=== PATIENT | male | born 1980 | race Caucasian/White ===

== ENCOUNTER 2018-06-20 16:58 | Inpatient (IN) | payer MEDICAID, SELFPAY ==
--- NOTE | 2018-06-20 17:04 | PCM.HP.STD ---
Problem List (1) Heroin withdrawal Status: Acute (2) Hepatitis C Status: Chronic (3) Hepatitis B Status: Chronic (4) Nicotine abuse Status: Chronic (5) Anxiety Status: Chronic History of Present Illness Date of Admission: 06/20/18 Chief Complaint: heroin withdrawal The patient is a 37 year old M with pmhx of Hep B and C (never treated), anxiety, MRSA infections, heroin use since age 19, who presented to the hospital medical stabilization program with c/o heroin withdrawal. He uses IV heroin, about 1 gram per day. Last use was 9pm last night. Current withdrawal symptoms include anxiety, restlessness, aches, nausea. He injects into his hands and forearms. No drainage or open wounds. He also smokes 1/2 ppd and would like a patch. He does not drink. He denies other drug use. He was recently in a detox facility and was taking only trazodone for sleep which is not helping. [] Past Medical History Past Medical History (Chronic Problems): Chronic Problems Hepatitis C (Chronic) Hepatitis B (Chronic) Nicotine abuse (Chronic) Anxiety (Chronic) Surgical History: no surgical history Psychiatric History: Anxiety, Depression Lives: With Family Smoking Status: Current every day smoker Tobacco Use: Cigarettes Alcohol: None Drugs: Heroin - *Family History Maternal History Items: Cancer Paternal History Items: No pertinent history Review of Systems Constitutional: Denies: Chills, Fever, Weight Change HEENT: Denies: Head Aches, Sinus Congestion, Sinus Drainage Cardiovascular: Denies: Chest Pain, Palpitations Respiratory: Denies: Cough, Shortness of breath at rest, Sputum production Gastrointestinal: Reports: Nausea. Denies: Abdominal Pain, Vomiting Genitourinary: Denies: Dysuria Musculoskeletal: Reports: - - aches. Denies: Joint Pain, Joint Tenderness Skin: Reports: - - injection sites on forearms and hands not acutely infected. Denies: Rash, Wounds Neurological: Denies: Numbness, Tingling, Focal weakness Psychiatric: Reports: Anxiety. Denies: Depression, Homicidal Ideations, Suicidal Ideations Hematologic/ Lymphatic: Denies: Easy Bruising, Easy Bleeding VTE Information - Inpt Only VTE Present on Admission: No VTE Mechan Device Prophylaxis: None VTE Pharm Prophylaxis ordered?: No Reason prophylaxis not ordered:: Procedure Not Indicated Patient Problems: Active and Suspected Problems Heroin withdrawal (Acute) - Physical Exam General: Alert, Oriented x3, Cooperative HEENT: Atraumatic, PERRLA, EOMI, Normocephalic Neck: Supple, No JVD, Negative Carotid Bruits Lungs: Clear to auscultation, Normal air movement Cardiovascular: Regular rate, No murmurs Abdomen: Bowel Sounds Present, Soft, Non Tender Extremities: No edema, Capillary Refill Less than 3 Seconds Skin: No rashes, No breakdown Musculoskeletal: No Tenderness to Palpation of Joints or Extremities Neurological: Cranial nerves II-XII grossly intact Psych/Mental Status: Normal Affect, Appropriate Assessment/Plan All Active Problems Heroin withdrawal (Acute) 1. Acute heroin withdrawal - initiate medical stabilization protocol with suboxone/librium. 1g/day IV user forearms/hands, using since age 19, last use last evening 9pm, symptoms as above. 2. Nicotine abuse - patch 3. HepB/C history - untreated in past. DVT ppx: early ambulation Medical stabilization day 1 of 4 This patient was seen by Sharath Bull PA-C under the supervision of Dr. Hicks.
[2018-06-20 17:09] VITALS: BMI 25.1
[2018-06-20 17:32] VITALS: BP 133/81; PULSE 83; RESP 16; TEMP 36.7
[2018-06-20] MEDS: Methocarbamol 750 MG Tablet PO (17:51)
[2018-06-20] MEDS: Dicyclomine 10 MG Capsule 20 MG PO (17:51)
[2018-06-20] MEDS: cloNIDine HCl 0.1 MG Tablet PO (17:51)
[2018-06-20 18:00] VITALS: BP 133/81; PULSE 83; RESP 16; TEMP 36.7
[2018-06-20] MEDS: chlordiazePOXIDE 25 MG Capsule PO (21:14)
[2018-06-20 21:17] VITALS: BP 104/67; PULSE 71; RESP 14; TEMP 36.3
[2018-06-21 01:41] VITALS: BP 119/82; PULSE 56; RESP 16; TEMP 36.6
[2018-06-21] MEDS: Buprenorphine HCl 2 MG TAB.SUBL SL ×3 (01:43→17:45)
[2018-06-21] MEDS: Methocarbamol 750 MG Tablet PO ×3 (01:47→17:46)
[2018-06-21] MEDS: Ibuprofen 600 MG Tablet PO ×2 (01:47→16:25)
[2018-06-21 06:00] VITALS: BP 95/56; PULSE 55; RESP 16; TEMP 36.6
--- NOTE | 2018-06-21 06:36 | PCM.PN.HOSP ---
Patient Problems: Active and Suspected Problems Heroin withdrawal (Acute) Subjective: Patient with ongoing mild tremors, sweating, abdominal cramping and body aches although mildly improved from initial presentation. Additional regimen added and requested from nursing staff following evaluation patient. Discussed patient diagnosis of hepatitis B and C and encourage patient to consider sobriety, clean status times at least 6 months to initiate on therapy. Patient denies fevers, nausea, emesis, chest pain or dyspnea. Objective: Physical Examination: General: awake, alert, oriented x 3 and cooperative, laying in the bed, uncomfortable appearing, sweating. Skin: normal color, turgor, no icterus, cyanosis several tattoos present. HEENT: AT/NC, EOMI, PERRLA, mildly dry MM. Lungs: CTA bilaterally, moderate effort, mild decrease BL bases, no rales, ronchi or wheezing. Heart: Regular rate and rhythm; no gallop, rub audible. Abdomen: soft, mild generalized discomfort with palpation, ND, normal BS, mild HM. Extremities: no cyanosis, clubbing, or edema. Neurological: patient awake, alert, oriented x 3; cognitive function intact; pupils equally reactive to light and accomodation; cranial nerves II-XII grossly normal, moving all 4 extremities, no focal deficits, strength moderately globally decreased secondary to acute presentation. Psychiatric: affect appears fatigued, no acute evidence of depressive or anxiety feelings. Vitals/I&O's: Vital Signs Temp Pulse Resp BP 97.8 F 55 L 16 95/56 L 06/21/18 06:00 06/21/18 06:00 06/21/18 06:00 06/21/18 06:00 Weight: 175 lb 2 oz Body Mass Index (BMI) 25.1 Intake and Output for Last 24 Hours 06/19/18 06/20/18 06/21/18 23:59 23:59 23:59 Intake Total 100 / 100 Balance 100 / 100 Current Medications Acetaminophen (Tylenol) 500 mg PO Q4H PRN PRN PRN Reason: Temp > 100.4 F Buprenorphine HCl (Buprenorphine Hcl) 4 mg SL Q8H BRUNILDA; Taper Stop: 06/23/18 21:59 Last Admin: 06/21/18 01:43 Dose: 4 mg Chlordiazepoxide (Librium) 25 mg PO Q6H PRN PRN PRN Reason: Moderate-Severe Anxiety Last Admin: 06/20/18 21:14 Dose: 25 mg Clonidine (Catapres) 0.1 mg PO Q2H PRN PRN PRN Reason: Hot/Cold Sweats or Anxiety Last Admin: 06/20/18 17:51 Dose: 0.1 mg Dicyclomine HCl (Bentyl) 20 mg PO Q6H PRN PRN PRN Reason: Abdomnial Discomfort Last Admin: 06/20/18 17:51 Dose: 20 mg Ibuprofen (Motrin) 600 mg PO Q8H PRN PRN PRN Reason: Mild-Moderate Pain (1-5/10) Last Admin: 06/21/18 01:47 Dose: 600 mg Methocarbamol (Methocarbamol) 750 mg PO Q6H PRN PRN PRN Reason: Muscle Aches Last Admin: 06/21/18 01:47 Dose: 750 mg Nicotine (Nicoderm Cq (Pbkc)) 21 mg TRANSDERM. DAILY BRUNILDA Last Admin: 06/20/18 21:14 Dose: 21 mg Medical Necessity - Tobacco Use Smoking Status: Current every day smoker Tobacco Use: Cigarettes Assessment/Plan All Active Problems Heroin withdrawal (Acute) The patient is a 37 y/o M w/ PMHx: Known Hepatitis B and C without any treatment history, Hx MRSA, Tobacco use, Heroine Usage IV (1 gm daily) since age 19 who presents to the the [facility] at [facility] on 06/21/18 w/ noted opiate withdrawal onset starting 06/20/18 following last dose 06/19/18 ~ 9 am with abdominal pain/cramping, generalized body aches and pains, rhinorrhea, piloerection, fatigue, restless leg, sweating, yawning. (1) Acute Opiate Withdrawal: Admitted to [place], obtained routine labs including CBC, CMP, urine for drug screen, continue on [facility] service protocol with tapering course of Subutex, as needed Seroquel, Librium, Sinemet, Catapres, Bentyl, Vistaril, IV fluids, IV antiemetics, Tylenol as needed for pain. Once patient clinically improved and completion of taper nearing will plan [facility] assistance for transition to next level of rehabilitation care. (2) Polysubstance Abuse, IVDA Hx, History of Hepatitis B and C, Chronic: Patient currently not candidate for hepatitis C treatment currently as needs to be clean, sober x 6 months, documented attendance NA or AA meetings, counseling and ongoing negative drug screens. HIV panel negative. Encouraged PCP establishment and follow-up. Will given referral to ID given co-infection with B and C. (3) Elevated LFTs w/ Hx Hepatitis C, B, Untreated: Routine labs obtained as noted, resulted with T bili 0.7, AST/ALT 100/152, Alk phos 104, unclear baseline, no prior labs [facility]. As noted, #2, intention to refer to ID upon discharge. (4) Tobacco Abuse: Encouraged cessation, inpatient consultation per RT, NR if desired. (5) DVT Prophylaxis: Low risk, ambulation. Code Visit Inpatient E&M: 29968 Subs Hosp L2
[2018-06-21 07:11] LABS: Absolute Lymphocyte Count 2.56 X10^3/ul (0.83-4.51); Basophil# 0.03 X10^3/uL; Basophil% 0.4 % (0-1); Eosinophil# 0.16 X10^3/uL; Eosinophils% 2.1 % (0-5); Hematocrit 43.1 % (40-54); Hemoglobin 14.8 g/dl (13.0-16.5); Lymphocyte # 2.56 X10^3/ul (4.0); Mean Corp Hgb Conc 34.3 g/gl (32-36); Mean Corpuscular Volume 90.2 fL (80-94); Mean Platelet Vol. 9.4 fl (6.2-12.0); Monocyte# 0.78 X10^3/uL; Monocyte% 10.4 % (0-10); Neutrophil # 3.98 X10^3/uL (2.7-7.7); Platelet Count 233 K/mm3 (150-450); RBC Distribution Width CV 13.6 % (11.6-14.6); Red Blood Count 4.78 M/mm3 (4.6-6.2); White Blood Count 7.5 K/mm3 (4.4-11.0)
[2018-06-21 07:13] LABS: POSITIVE COUNT NO; POSITIVE DIFFERENTIAL NO; POSITIVE MORPHOLOGY NO
[2018-06-21 07:26] LABS: ALB/GLOB Ratio 0.7 RATIO (0.9-2.4); AST(SGOT) 100 U/L (15-37); Alanine Aminotransfer ALT/SGPT 152 U/L (16-61); Albumin, Serum 3.3 g/dL (3.2-5.0); Alkaline Phosphatase 104 U/L (45-117); Anion Gap 7 (5-15); BUN 9 mg/dL (7-18); BUN/Creat Ratio 11.6 RATIO (10-20); Calcium,Total 8.8 mg/dL (8.5-10.1); Chloride 105 mmol/L (98-107); Creatinine, Serum 0.78 mg/dL (0.70-1.30); EST Glomerular Filtration Rate 121 mL/min (>60); Est Glom Filt Rate - Afr Amer 146 mL/min (>60); Estimated Creatinine Clearance 136.49 ml/min; Globulin 4.5 g/dL (2.2-4.2); Glucose 95 mg/dL (74-106); Potassium 3.5 mmol/L (3.5-5.1); Protein, Total 7.8 g/dL (6.4-8.2); Sodium Level 138 mmol/L (136-145)
[2018-06-21 07:32] LABS: Alcohol, Blood (Medical)-Serum < 3.0 mg/dL
[2018-06-21 08:29] LABS: HIV - WCH Non-Reactive (Nonreactive)
[2018-06-21 10:57] VITALS: BP 116/65; PULSE 58; RESP 12; TEMP 36.6
[2018-06-21] MEDS: Dicyclomine 10 MG Capsule 20 MG PO ×2 (10:59→17:46)
[2018-06-21] MEDS: hydrOXYzine PAM 25 MG Capsule 50 MG PO ×2 (11:00→20:41)
[2018-06-21 16:00] VITALS: BP 117/74; PULSE 66; RESP 14; TEMP 36.7
[2018-06-21] MEDS: Ondansetron ODT 4 MG Tablet PO (16:25)
[2018-06-21] MEDS: cloNIDine HCl 0.1 MG Tablet PO ×2 (16:25→20:41)
[2018-06-21] MEDS: chlordiazePOXIDE 25 MG Capsule PO (16:25)
[2018-06-21] MEDS: Pramipexole Di-HCl 0.25 MG Tablet PO (16:25)
--- NOTE | 2018-06-21 17:20 | NURSING ---
PCU STAFF CALLED TO REPORT THAT PT WAS ON THEIR UNIT LOOKING FOR A PHYSICAL THERAPY AID TO FIT HIS PHONE AND HE SMELLED LIKE CIG SMOKE. PT DENIES GOING OUT TO SMOKE AND STATES HE JUST WENT TO DESK LOOKING FOR A PHYSICAL THERAPY AID. HE WAS TOLD THAT THIS WAS HIS ONE AND ONLY REMINDER, THAT HE IS NOT TO LEAVE THE UNIT/NO SMOKING. PT REPORTS UNDERSTANDING
[2018-06-21 18:05] LABS: Bacteria 0 SEEN /hpf (None Seen); Mucous, Urine 0 SEEN /hpf (<or=2+); Red Blood Cells-Urine 0 SEEN /hpf (0-5); Squamous Epithelial Cells - UA 0 SEEN /hpf (0-5); White Blood Cells 0 SEEN /hpf (0-5)
[2018-06-21 18:08] LABS: Color, Urine Yellow (Yellow); Glucose, Dipstick Normal (Normal); Ketone-Dipstick Negative (Negative); Leukocyte Esterase-Dipstick Negative /ul (Negative); Nitrite-Dipstick Negative (Negative); Occult Blood-Urine Negative /ul (Negative); Protein-Dipstick Negative (Negative); Urine Bilirubin Dipstick Negative (Negative); Urine Clarity Clear (Clear); Urine Urobilinogen Normal (Normal)
[2018-06-21 20:25] LABS: Amphetamine Urine VISTA NEGATIVE (<1000 ng/mL); Barbiturate Urine VISTA NEGATIVE (< 200 ng/mL); Benzodiazepine Urine VISTA POSITIVE (< 200 ng/mL); Cocaine Urine VISTA NEGATIVE (< 300 ng/mL); Ecstacy Urine VISTA NEGATIVE (< 500 ng/mL); Methadone Urine VISTA NEGATIVE (< 300 ng/mL); PCP Urine VISTA NEGATIVE (< 25 ng/mL); THC Urine VISTA NEGATIVE (< 50 ng/mL); Vista UDS pH Range 7
[2018-06-21 20:26] VITALS: BP 113/77; PULSE 81; RESP 14; TEMP 36.6
[2018-06-21] MEDS: Acetaminophen 500 MG Tablet PO (20:43)
[2018-06-21] MEDS: QUEtiapine 25 MG Tablet PO (23:20)
[2018-06-22 03:16] VITALS: BP 107/74; PULSE 63; RESP 16; TEMP 36.7
[2018-06-22] MEDS: Buprenorphine HCl 2 MG TAB.SUBL SL ×3 (03:19→21:56)
--- NOTE | 2018-06-22 07:33 | PCM.PN.HOSP ---
Patient Problems: Active and Suspected Problems Heroin withdrawal (Acute) Subjective: Patient still with ongoing body aches, fatigue, malaise, sweating. He notes mild upper respiratory symptoms recently. Discussed plan for respiratory viral panel to elucidate if this is possibly another etiology aside from withdrawal symptoms. He notes some mild nausea the evening prior but none since. He has per staff been tolerating diet. Patient denies fevers, chills, nausea, abdominal pain, chest pain or dyspnea. Objective: Physical Examination: General: awake, alert, oriented x 3 and cooperative, laying in the bed, remains mildly diaphoretic, states still not feeling well. Skin: normal color, turgor, no icterus, cyanosis several tattoos present. HEENT: AT/NC, EOMI, PERRLA, mildly improved MM. Lungs: CTA bilaterally, moderate effort, moderate decrease BL bases, no rales, ronchi or wheezing. Heart: Regular rate and rhythm; no gallop, rub audible. Abdomen: soft, no marked TTP currently, ND, normal BS. Extremities: no cyanosis, clubbing, or edema. Neurological: patient awake, alert, oriented x 3; cognitive function intact; pupils equally reactive to light and accomodation; cranial nerves II-XII grossly normal, moving all 4 extremities, no focal deficits, strength moderately globally decreased secondary to acute presentation. Psychiatric: affect appears fatigued, uncomfortable, no acute evidence of depressive or anxiety feelings. Vitals/I&O's: Vital Signs Temp Pulse Resp BP 98.0 F 63 16 107/74 06/22/18 03:16 06/22/18 03:16 06/22/18 03:16 06/22/18 03:16 Oxygen Delivery Method Room Air Weight: 175 lb 2 oz Body Mass Index (BMI) 25.1 Intake and Output for Last 24 Hours 06/20/18 06/21/18 06/22/18 23:59 23:59 23:59 Intake Total 100 / 100 600 / 600 Balance 100 / 100 600 / 600 Laboratory Results 06/21/18 06:55: HIV 1&2 Antibody Non-Reactive 06/21/18 17:50: Urine Opiates Screen POSITIVE H, Urine Methadone Screen NEGATIVE, Ur Barbiturates Screen NEGATIVE, Ur Phencyclidine Scrn NEGATIVE, Ur Amphetamines Screen NEGATIVE, U Methamphetamin-MDMA NEGATIVE, U Benzodiazepines Scrn POSITIVE H, Urine Cocaine Screen NEGATIVE, U Cannabinoids Screen NEGATIVE, Ur Drug Screen Comment 06/21/18 17:50: Urine Color Yellow, Urine Clarity Clear, Urine pH 8.0, Ur Specific [place] 1.010, Urine Protein Negative, Urine Glucose (UA) Normal, Urine Ketones Negative, Urine Occult Blood Negative, Urine Nitrite Negative, Urine Bilirubin Negative, Urine Urobilinogen Normal, Ur Leukocyte Esterase Negative, Urine RBC 0 SEEN, Urine WBC 0 SEEN, Ur Squamous Epith Cells 0 SEEN, Urine Bacteria 0 SEEN, Urine Mucus 0 SEEN Current Medications Acetaminophen (Tylenol) 500 mg PO Q4H PRN PRN PRN Reason: Temp > 100.4 F Last Admin: 06/21/18 20:43 Dose: 500 mg Al Hydroxide/Mg Hydroxide (Mylanta Ii) 30 ml PO Q6H PRN PRN PRN Reason: dyspesia Bisacodyl (Dulcolax) 10 mg RECTAL DAILY PRN PRN Reason: Constipation Buprenorphine HCl (Buprenorphine Hcl) 2 mg SL Q8H BRUNILDA; Taper Stop: 06/23/18 21:59 Last Admin: 06/22/18 03:19 Dose: 2 mg Chlordiazepoxide (Librium) 25 mg PO Q6H PRN PRN PRN Reason: Moderate-Severe Anxiety Last Admin: 06/21/18 16:25 Dose: 25 mg Clonidine (Catapres) 0.1 mg PO Q2H PRN PRN PRN Reason: Hot/Cold Sweats or Anxiety Last Admin: 06/21/18 20:41 Dose: 0.1 mg Dicyclomine HCl (Bentyl) 20 mg PO Q6H PRN PRN PRN Reason: Abdomnial Discomfort Last Admin: 06/21/18 17:46 Dose: 20 mg Hydroxyzine HCl (Vistaril Vial) 50 mg IM Q6H PRN PRN PRN Reason: Breakthrough Anxiety Hydroxyzine Pamoate (Vistaril Pamoate Capsule) 50 mg PO Q6H PRN PRN PRN Reason: Mild Anxiety Last Admin: 06/21/18 20:41 Dose: 50 mg Ibuprofen (Motrin) 600 mg PO Q8H PRN PRN PRN Reason: Mild-Moderate Pain (1-5/10) Last Admin: 06/21/18 16:25 Dose: 600 mg Loperamide HCl (Imodium) 2 - 4 mg PO UD PRN PRN Reason: LOOSE STOOLS Methocarbamol (Methocarbamol) 750 mg PO Q6H PRN PRN PRN Reason: Muscle Aches Last Admin: 06/21/18 17:46 Dose: 750 mg Nicotine (Nicoderm Cq (Pbkc)) 21 mg TRANSDERM. DAILY BRUNILDA Last Admin: 06/21/18 11:00 Dose: 21 mg Ondansetron HCl (Zofran Odt) 4 mg PO Q6H PRN PRN PRN Reason: NAUSEA Last Admin: 06/21/18 16:25 Dose: 4 mg Pramipexole Dihydrochloride (Mirapex) 0.25 mg PO Q12H PRN PRN PRN Reason: Restless Legs Last Admin: 06/21/18 16:25 Dose: 0.25 mg Quetiapine Fumarate (Seroquel) 25 mg PO Q6H PRN PRN PRN Reason: agitation, anxiety Last Admin: 06/21/18 23:20 Dose: 25 mg Senna (Senokot) 1 tablet PO QHS PRN PRN Reason: Constipation Medical Necessity - Tobacco Use Smoking Status: Current every day smoker Tobacco Use: Cigarettes Assessment/Plan All Active Problems Heroin withdrawal (Acute) The patient is a 37 y/o M w/ PMHx: Known Hepatitis B and C without any treatment history, Hx MRSA, Tobacco use, Heroine Usage IV (1 gm daily) since age 19 who presents to the the [facility] at [facility] on 06/21/18 w/ noted opiate withdrawal onset starting 06/20/18 following last dose 06/19/18 ~ 9 am with abdominal pain/cramping, generalized body aches and pains, rhinorrhea, piloerection, fatigue, restless leg, sweating, yawning. (1) Acute Opiate Withdrawal: Admitted to [place], obtained routine labs including CBC, CMP, urine for drug screen, continued on [facility] service protocol with tapering course of Subutex, as needed Seroquel, Librium, Sinemet, Catapres, Bentyl, Vistaril, IV fluids, IV antiemetics, Tylenol as needed for pain. Once patient clinically improved and completion of taper nearing will plan [facility] assistance for transition to next level of rehabilitation care. Plan of care will be discharge to next level of care 06/22/18. (2) ? Acute Viral Syndrome: She with ongoing diaphoresis, arthralgias, myalgias, recent mild URI symptoms not overt on examination but to be cautious given high rate of influenza recently will obtain respiratory viral panel, although suspect likely related to severe withdrawal #1, continue treatments as noted. (3) Polysubstance Abuse, IVDA Hx, History of Hepatitis B and C, Chronic: Patient currently not candidate for hepatitis C treatment currently as needs to be clean, sober x 6 months, documented attendance NA or AA meetings, counseling and ongoing negative drug screens. HIV panel negative. Encouraged PCP establishment and follow-up. Will given referral to ID given co-infection with B and C. (4) Elevated LFTs w/ Hx Hepatitis C, B, Untreated: Routine labs obtained as noted, resulted with T bili 0.7, AST/ALT 100/152, Alk phos 104, unclear baseline, no prior labs in [facility]. As noted, #2, intention to refer to ID upon discharge. As noted planned ID evaluation follow-up. Repeat CMP pending given #2. (5) Tobacco Abuse: Encouraged cessation, inpatient consultation per RT, NR if desired. (6) DVT Prophylaxis: Low risk, ambulation. Code Visit Inpatient E&M: 78525 Subs Hosp L2
[2018-06-22 10:25] VITALS: BP 115/71; PULSE 64; RESP 16; TEMP 36.5
[2018-06-22] MEDS: Ibuprofen 600 MG Tablet PO ×2 (10:31→22:03)
[2018-06-22] MEDS: cloNIDine HCl 0.1 MG Tablet PO ×2 (10:31→22:03)
[2018-06-22] MEDS: Methocarbamol 750 MG Tablet PO ×2 (10:31→17:32)
[2018-06-22] MEDS: hydrOXYzine PAM 25 MG Capsule 50 MG PO ×2 (10:31→17:32)
[2018-06-22 11:10] LABS: ALB/GLOB Ratio 0.8 RATIO (0.9-2.4); AST(SGOT) 93 U/L (15-37); Alanine Aminotransfer ALT/SGPT 155 U/L (16-61); Albumin, Serum 3.4 g/dL (3.2-5.0); Alkaline Phosphatase 101 U/L (45-117); Anion Gap 5 (5-15); BUN 9 mg/dL (7-18); BUN/Creat Ratio 10.3 RATIO (10-20); Calcium,Total 8.5 mg/dL (8.5-10.1); Chloride 105 mmol/L (98-107); Creatinine, Serum 0.88 mg/dL (0.70-1.30); EST Glomerular Filtration Rate 105 mL/min (>60); Est Glom Filt Rate - Afr Amer 127 mL/min (>60); Estimated Creatinine Clearance 120.98 ml/min; Globulin 4.1 g/dL (2.2-4.2); Glucose 126 mg/dL (74-106); Potassium 3.9 mmol/L (3.5-5.1); Protein, Total 7.5 g/dL (6.4-8.2); Sodium Level 136 mmol/L (136-145)
--- NOTE | 2018-06-22 12:06 | NURSING ---
1100- NURSE IN TO ROOM TO CHANGE LINENS. WHILE NURSE IN ROOM, PT REACHES RIGHT ARM/HAND UNDER FITTED SHEET ON RIGHT SIDE OF BED, CRINKLING SOUND MADE PT MAKES FIST WITH HIS RIGHT HAND. NURSE INQUIRES IF PT HAS SOMETHING IN HIS HAND, PT THEN REACHES HAND HAND DOWN TOWARDS HIS LEG QUICKLY, FIDGETS AND THEN PUTS HIS RIGHT HAND DOWN THE RIGHT SIDE OF HIS PANTS ALL THE WHILE CRINKLING SOUND CAN BE HEARD AND PT DENIES THAT HE HAS ANYTHING IN HIS HAND. PT SAT IN FOLDING CHAIR AT BEDSIDE, BLUEISH/GREEN OBLONG TOOL FOUND IN CENTER OF HIS BED-NURSE INQUIRES WHAT TOOL THAT IS- PT STATES THAT IS MY VAPE, PT AGREEABLE TO HAVE IT LOCKED UP IN MED DRAWER. MUCH EDUCATION PROVIDED ON CONTRAINDICATIONS/RAMIFICATIONS WITH CONCURRENT USE OF NICOTINE PATCH THAT PT HAS ON. LINENS MADE. PT STANDS AND TAKES STEP FORWARD TOWARDS BED, GETTING INTO RIGHT SIDE OF BED. PT COVERS HIMSELF UP WITH A SHEET. NURSE MOVES FOLDING CHAIR AND LAYING ON FLOOR BY CHAIR FOOT IS A CLEAR CELLOPHANE LIKE BAG WITH VARIOUS PILLS IN IT- NURSE PICKED UP OFF OF FLOOR (GLOVES ON) AND ASKED PT IF THAT BELONGS TO HIM- PT REPLIES THAT IS MINE, IT IS MY PILLS. INQUIRED TO WHAT MEDICATIONS MIGHT BE IN THE BAG AND PT REPLIES THAT IS MY FLEXERIL AND MY SUBUTEX, I HAVE BEEN TAKING THEM. INFORMED PT NURSE WILL LOCK BAG UP IN MED DRAWER, PT AGREES. DISCUSSION CONTINUES WITH PT ABOUT HIM ORDERING HIS LUNCH. UPON LEAVING ROOM- MEMO PRETTY AWARE, DR PROCTOR UPDATED AND AWARE, ELLIOT IN SECURITY AWARE, DIRECTOR OF MED SURG AWARE. ROSS PRETTY AND SADE PROCTOR IN TO TALK WITH PT AT BEDSIDE. DR PROCTOR UPDATED WELL. PT REMAINS COOPERATIVE DURING THIS EVENT.
[2018-06-22 14:09] VITALS: BP 92/58; PULSE 76; RESP 16; TEMP 36.6
[2018-06-22 14:10] VITALS: PULSE 72
--- NOTE | 2018-06-22 16:11 | NEWVISION ---
Patient to be picked up at 9am, [facility] [place] [facility] continuation of treatment and rehabilitation upon discharge 06/23/2018.
[2018-06-22 17:25] VITALS: BP 123/78; PULSE 81; RESP 18; TEMP 36.5
[2018-06-22] MEDS: Ondansetron ODT 4 MG Tablet PO (17:31)
[2018-06-22] MEDS: chlordiazePOXIDE 25 MG Capsule PO (17:32)
[2018-06-22 21:48] VITALS: BP 118/68; PULSE 67; RESP 18; TEMP 36.8
[2018-06-22] MEDS: Senna Tablet 1 TABLET PO (22:03)
[2018-06-22] MEDS: QUEtiapine 25 MG Tablet PO (22:03)
[2018-06-22] MEDS: Pramipexole Di-HCl 0.25 MG Tablet PO (22:04)
[2018-06-23 01:57] VITALS: BP 110/59; PULSE 69; RESP 18; TEMP 36.6
[2018-06-23] MEDS: hydrOXYzine PAM 25 MG Capsule 50 MG PO (02:06)
[2018-06-23] MEDS: Methocarbamol 750 MG Tablet PO (02:06)
[2018-06-23] MEDS: chlordiazePOXIDE 25 MG Capsule PO (02:06)
[2018-06-23 07:09] VITALS: BP 129/76; PULSE 95; RESP 16; TEMP 36.5; O2SAT 100
--- NOTE | 2018-06-23 07:09 | DCINST_ITS ---
- Discharge Diagnoses Current Active Problems: Current Active and Chronic Problems (1) Acute Opiate Withdrawal (2) ? Acute Viral Syndrome (3) Polysubstance Abuse, IVDA Hx, History of Hepatitis B and C, Chronic (4) Elevated LFTs w/ Hx Hepatitis C, B, Untreated (5) Tobacco Abuse (6) Anxiety You will use the following diet at home:: Regular Your food should be the consistency of: Regular Your liquids should be the consistency of: Regular/Thin Discharge Activity: - - Continue activity parameters at next level of care per their discretion in accordance with their facility regulations. May resume sexual activity in: - - You have both hepatitis B and C. Please see instructions to review concerns regarding sexual intercourse. Call your doctor if you observe: Fever of 101 or Higher, Inability to urinate, Inability to have a bowel movement, Shortness of breath, Dizziness, Fainting spells, Chest pain, Uncontrolled pain Instructions: Understanding Hepatitis C (HCV), Treating Hepatitis C (HCV), Understanding Hepatitis B (HBV), Treating Hepatitis B (HBV), Discharge Instructions for Hepatitis C, Hepatitis C: Preventing the Spread, Hepatitis C: Know the Facts, ED Narcotic Abuse, Why Do You Smoke?, Planning to Quit Smoking, Getting Support for Quitting Smoking, Coping with Smoking Withdrawal Allergies/Adverse Reactions: Allergies No Known Allergies Allergy (Verified 06/20/18 17:13) Primary Care Physician: Care Physician,No Primary [Primary Care Provider] - Please follow up with your Primary Care Physician in: Please establish with primary care within 1-2 weeks. Test Results: Test results from this visit will be discussed in further detail at your follow- up appointment, if applicable. Please Follow Up With: Mandeep Correia MD When: Follow-up with Infectious Disease to discuss treatment for Hepatitis B, C. Please Follow Up With: Proposed Discharge Date: 06/23/18
--- NOTE | 2018-06-23 07:10 | DS.PCM_ITS ---
Discharge Date and Diagnosis - Problem List Patient Problems: Active and Suspected Problems Heroin withdrawal (Acute) Date of Admission: 06/20/18 Date of Discharge: 06/23/18 - Primary Discharge Diagnosis Active and Suspected Problems (1) Acute Opiate Withdrawal (2) ? Acute Viral Syndrome (3) Polysubstance Abuse, IVDA Hx, History of Hepatitis B and C, Chronic (4) Elevated LFTs w/ Hx Hepatitis C, B, Untreated (5) Tobacco Abuse (6) Anxiety - Secondary Discharge Diagnosis Chronic Problems Hepatitis C (Chronic) Hepatitis B (Chronic) Nicotine abuse (Chronic) Anxiety (Chronic) Hospital Course and Treatment Operations: None Procedures: None Summary of Care Provided: The patient is a 37 y/o M w/ PMHx: Known Hepatitis B and C without any treatment history, Hx MRSA, Tobacco use, Heroine Usage IV (1 gm daily) since age 19 who presented to the the [facility] on 06/21/18 w/ noted opiate withdrawal onset starting 06/20/18 following last dose 06/19/18 ~ 9 am with abdominal pain/cramping, generalized body aches and pains, rhinorrhea, piloerection, fatigue, restless leg, sweating, yawning. Admitted to AL, obtained routine labs including CBC, CMP, urine for drug screen, continued on [facility] service protocol with tapering course of Subutex, as needed Seroquel, Librium, Sinemet, Catapres, Bentyl, Vistaril, IV fluids, IV antiemetics, Tylenol as needed for pain. Once patient clinically improved and completion of taper neared, [facility] assistance taken for transition to next level of rehabilitation care. During admission of note, patient was found with bottle of subutex and flexeril underneath his pillow. Discussed were undertaken with patient and [facility]. These medications per patient allowance were appropriate disposed and he completed the program. During admission with patient notable diaphoresis, arthralgias, myalgias, recent mild URI symptoms not overt on exam ination but to be cautious given high rate of influenza recently obtained respiratory viral panel that was unremarkable and felt his sxs likely related to severe withdrawal. Patient discussions with note that he was currently not candidate for hepatitis C treatment as needs to be clean, sober x 6 months, documented attendance NA or AA meetings, counseling and ongoing negative drug screens. HIV panel negative. Encouraged PCP establishment and follow-up. Patient given referral to ID given co-infection with B and C upon discharge with noted admission CMP w/ T bili 0.7, AST/ALT 100/152, Alk phos 104, unclear baseline. DAY OF DISCHARGE PROGRESS NOTE: Subjective: Patient without acute event overnight per self and nursing report. Patient denies fever, chills, nausea, emesis, abdominal pain, chest pain or dyspnea. Patient this morning is up and moving in the halls, dressed, much more comfortable appearing than any other day prior. Again discussed events of yesterday with finding Flexeril and Subutex on his persons. Encouraged him to avoid any substance given his current presentation. Patient agreeable to discharge to next level of care with [facility] as well as agreeable to follow-up with infectious disease. Patient will be discharged with follow-up with primary care physician within 3-5 days in addition to follow-up with infectious disease. Objective: T 97.7, heart rate 95, BP 129/76, respiratory rate 18, 100% on room air. Physical Examination: General: awake, alert, oriented x 3 and cooperative, seated upright in the bed, usually walking the halls, well-appearing this morning, much improved, NAD. Skin: normal color, turgor, no icterus, cyanosis. HEENT: AT/NC, EOMI, PERRLA, improved MMM. Lungs: CTA bilaterally, moderate effort, mild decrease BL bases, no rales, ronc hi or wheezing; Heart: Regular rate and rhythm; no gallop, rub audible. Abdomen: soft, NTTP, ND, normal BS. Extremities: no cyanosis, clubbing, or edema. Neurological: patient awake, alert, oriented x 3; cognitive function appears intact upon questioning,; pupils equally reactive to light and accomodation; cranial nerves II-XII grossly normal, moving all 4 extremities, strength improved, walking the halls really without any issue, appears intact. Psychiatric: affect appears normal, no acute evidence of depressive or anxiety feelings. Assessment and Plan: Please see hospital summary above. Patient Problems: Active and Suspected Problems Heroin withdrawal (Acute) - Physical Exam Vital Signs Temp Pulse Resp BP 98 F 69 18 110/59 L 06/23/18 01:57 06/23/18 01:57 06/23/18 01:57 06/23/18 01:57 Oxygen Delivery Method Room Air Weight: 175 lb 2 oz Body Mass Index (BMI) 25.1 Intake and Output for Last 24 Hours 06/21/18 06/22/18 06/23/18 23:59 23:59 23:59 Intake Total 100 / 100 600 / 600 600 / 600 Balance 100 / 100 600 / 600 600 / 600 Microbiology Past 72 Hours 06/22/18 11:40 Respiratory Panel (PCR) - Final Mucosa - Nasopharyngeal Laboratory Tests Past 24 Hrs 06/22/18 10:28 Sodium 136 Potassium 3.9 Chloride 105 Carbon Dioxide 26.0 Anion Gap 5 BUN 9 Creatinine 0.88 Estim Creat Clear Calc 120.98 Est GFR (MDRD) Af Amer 127 Est GFR (MDRD) Non-Af 105 BUN/Creatinine Ratio 10.3 Glucose 126 H Calcium 8.5 Total Bilirubin 0.60 AST 93 H ALT 155 H Alkaline Phosphatase 101 Total Protein 7.5 Albumin 3.4 Globulin 4.1 Albumin/Globulin Ratio 0.8 L Discharge Activity: - - Continue activity parameters at next level of care per their discretion in accordance with their facility regulations. May resume sexual activity in: - - You have both hepatitis B and C. Please see instructions to review concerns regarding sexual intercourse. Call your doctor if you observe: Fever of 101 or Higher, Inability to urinate, Inability to have a bowel movement, Shortness of breath, Dizziness, Fainting spells, Chest pain, Uncontrolled pain Primary Care Physician: Care Physician,No Primary [Primary Care Provider] - Please follow up with your Primary Care Physician in: Please establish with primary care within 1-2 weeks. Please Follow Up With: Mandeep Correia MD When: Follow-up with Infectious Disease to discuss treatment for Hepatitis B, C. Please Follow Up With: Patient Instructions: Understanding Hepatitis C (HCV), Treating Hepatitis C (HCV), Treating Hepatitis B (HBV), Understanding Hepatitis B (HBV), Why Do You Smoke?, Planning to Quit Smoking, Getting Support for Quitting Smoking, Coping with Smoking Withdrawal, Discharge Instructions for Hepatitis C, Hepatitis C: Preventing the Spread, Hepatitis C: Know the Facts, ED Narcotic Abuse Disposition: Home Minutes spent on discharge:: 35 Patient Condition:: Fair Medical Necessity - Tobacco Use Smoking Status: Current every day smoker Tobacco Use: Cigarettes Meaningful Use Info Meaningful Use Diagnoses (Choose all that apply): None applicable Code Visit Inpatient E&M: 48806 Disch Hosp
[2018-06-23 08:58] VITALS: BP 129/76; PULSE 95; RESP 18; TEMP 36.5; O2SAT 100
[2018-06-23 08:59] VITALS: RESP 18
[2018-06-23] MEDS: Buprenorphine HCl 2 MG TAB.SUBL SL (09:02)
== END 2018-06-23 09:18 | disposition home or self-care (01) | DRG 773 ==
PROVIDERS: Admitting Provider Internal Medicine; Referring Provider Internal Medicine; Visit Provider Family Medicine
DX: F11.23 Opioid dependence with withdrawal (principal); F17.210 Nicotine dependence, cigarettes, uncomplicated; B18.2 Chronic viral hepatitis C; B18.1 Chronic viral hepatitis B without delta-agent; B34.9 Viral infection, unspecified; F41.9 Anxiety disorder, unspecified; F19.10 Other psychoactive substance abuse, uncomplicated
CPT/HCPCS: 36415; 80053; 80307; 80320; 81001; 85025; 86703; 87633; G0480